=== PATIENT | male | born 1955 | race Caucasian/White ===

== ENCOUNTER 2019-07-01 06:15 | Emergency (ER) | payer OTHER, MEDICAID ==
[~2019-07-01] VITALS: Ht 175.3 cm; Wt 63.5 kg
--- NOTE | 2019-07-01 07:00 | NUR ---
FELICITA FROM HOME TO ER BED 1. AAOX4. NO RESP DISTRESS, BREATHING EVEN AND UNLABORED. C/O VOICE HOARSENESS. PER PT HE TOOK SOME BROMEL[place] PILLS THAT GOT STUCK IN HIS THROAT. THEN VOMMITED AND FEEL HE IS HAVING AN ACID REFLUX HE THINKS MIGHT BE CAUSING HIM TO LOOSE HIS VOICE. HE ALSO REPORTS THAT HE WENT TO THE [facility] AND WAS IN THEIR WAITING ROOM WITH PEOPLE WHO ARE SICK. PT FEEL WEAK BECAME HE HAVENT EATEN SINCE LAST NIGHT. DENIES AND ABD AND CP. PT DOES REPORT NAUSEA AND HEARTBEURN AT THIS TIME. AWAITING MD FOR EVAL.
[2019-07-01] MEDS ORDERED: LIDOCAINE VISCOUS 2% UD 15 ML UDC ONE (08:21)
[2019-07-01] MEDS ORDERED: MAG HYDROX/AL HYDROX/SIMETH 30 ML UDC ONE (08:21)
[2019-07-01] MEDS ORDERED: MAG HYDROX/AL HYDROX/SIMETH 30 ML UDC PO ONE (08:30)
[2019-07-01] MEDS ORDERED: LIDOCAINE VISCOUS 2% UD 15 ML UDC MM ONE (08:30)
--- NOTE | 2019-07-01 09:04 | NUR ---
Patient discharged to home in stable condition. Written and verbal after care instructions given. Patient verbalizes understanding of instruction.
[2019-07-01 09:05] VITALS: BP 128/65
== END 2019-07-01 09:07 | disposition home or self-care (01) ==
LOC: ER 06:21
DX: K20.9 Esophagitis, unspecified (principal)
CPT/HCPCS: 71045-TC